=== PATIENT | male | born 1995 | race Caucasian/White ===

== ENCOUNTER 2018-08-18 12:47 | Emergency (ER) | payer SELFPAY ==
--- NOTE | 2018-08-18 13:19 | ED Physician Chart ---
ED Chief Complaint/HPI - Patient Information Date Seen:: 08/18/18 Time Seen:: 13:14 Chief Complaint:: HEADACHE History of Present Illness:: 23 YR OLD OTHERWISE HEALTH BOY WITH HIS SISTER FOR HEADACHE FOR 2 DAYS WITHOUT NUMBNESS TINGLING DIZZINESS OR VISUAL COMPLAINTS Allergies:: Allergies Allergy/AdvReac Type Severity Reaction Status Date / Time No Known Allergies Allergy Verified 08/18/18 12:59 Vitals:: Vital Signs - 8 hr 08/18/18 12:59 Temp 99.6 F HR 117 RR 18 BP 110/65 O2 Sat % 96 ED Review of Systems - Review of Systems General/Constitutional: No fever, No chills, No weight loss, No weakness, No diaphoresis, No edema, No loss of appetite Skin: No skin lesions, No rash, No bruising Head: No headache, No light-headedness Eyes: No loss of vision, No pain, No diplopia ENT: No earache, No nasal drainage, No sore throat, No tinnitus Neck: No neck pain, No swelling, No thyromegaly, No stiffness, No mass noted Cardio Vascular: No chest pain, No palpitations, No PND, No orthopnea, No edema Pulmonary: No SOB, No cough, No sputum, No wheezing GI: No nausea, No vomiting, No diarrhea, No pain, No melena, No hematochezia, No constipation, No hematemesis G/U: No dysuria, No frequency, No hematuria Musculoskeletal: No bone or joint pain, No back pain, No muscle pain Endocrine: No polyuria, No polydipsia Psychiatric: No prior psych history, No depression, No anxiety, No suicidal ideation Hematopoietic: No bruising, No lymphadenopathy Allergic/Immuno: No urticaria, No angioedema Neurological: Headache ED Past Medical History - Past Medical History Past Medical History: No significant medical hx ED Physical Exam - Physical Examination General/Constitutional: Awake, Well-developed, well-nourished, Alert, No distress, GCS 15, Non-toxic appearing, Ambulatory Head: Atraumatic Eyes: Lids, conjuctiva normal, PERRL, EOMI Skin: Nl inspection, No rash, No skin lesions, No ecchymosis, Well hydrated, No lymphadenopathy ENMT: External ears, nose nl, Nasal exam nl, Lips, teeth, gums nl Neck: Nontender, Full ROM w/o pain, No JVD, No nuchal rigidity, No bruit, No mass, No stridor Respiratory: Nl effort/Exclusion, Clear to Auscultation, No Wheeze/Rhonchi/Rales Cardio Vascular: RRR, No murmur, gallop, rubs, NL S1 S2 GI: No tenderness/rebounding/guarding, No organomegaly, No hernia, Normal BS's, Nondistended, No mass/bruits, No McBurney tenderness : No CVA tenderness Extremities: No tenderness or effusion, Full ROM, normal strength in all extremities, No edema, Normal digits & nails Neuro/Psych: Alert/oriented, DTR's symmetric, Normal sensory exam, Normal motor strength, Judgement/insight normal, Mood normal, Normal gait, No focal deficits Misc: Normal back, No paraspinal tenderness ED Assessment - Assessment General Assessment: HEADACHE NONSPECIFIC ED Septic Shock - . Is Septic Shock (SBP<90, OR Lactate>4 mmol\L) present?: No - <6hrs of presentation: Vital Signs: Vital Signs - 8 hr 08/18/18 12:59 Temp 99.6 F HR 117 RR 18 BP 110/65 O2 Sat % 96
[2018-08-18] MEDS ORDERED: Acetaminophen 500 MG TAB PO ONE (13:20)
[2018-08-18] MEDS ORDERED: Acetaminophen 500 MG TAB ONE (13:26)
--- NOTE | 2018-08-18 13:45 | Diagnostic Imaging Report ---
Head CT without intravenous contrast Indication: Headache Comparison: None Technique: Axial images were obtained from the vertex to the skull base without IV contrast. Coronal reconstructions were made. Total DLP: 625, [id number] FINDINGS: Images of the brain obtained without contrast demonstrate no acute hemorrhage. No mass lesions identified. The ventricles and basal cisterns are patent. The fernandez-white matter differentiation is preserved. There is no mass effect or midline shift. No skull fractures identified. No soft tissue swelling. There is mucosal thickening in the paranasal sinuses partially visualized opacification of the left maxillary sinus. IMPRESSION: No acute intracranial abnormality. Mucosal thickening of the left maxillary sinus with probable left maxillary sinusitis.
== END 2018-08-18 14:46 | disposition home or self-care (01) ==
LOC: ER 12:47
DX: R51 Headache (principal); J32.9 Chronic sinusitis, unspecified
CPT/HCPCS: 70450-TC; Z7502; Z7610